=== PATIENT | female | born 1990 | race Caucasian/White ===

== ENCOUNTER 2021-05-29 06:25 | Day surgery (SDC) | payer SELFPAY ==
[~2021-05-29] VITALS: Ht 180.3 cm; Wt 120.9 kg
[~2021-05-29 06:25] MED LIST: ACET1TAB43 PO; CLINDAMYCIN 900MG PREMIX 50 ML IV PRN; FAMO20TA5 PO; HYDROmorphone 2 MG/ML VIAL IVP PRN; IV RINGERS,LACTATED 1000ML 1,000 ML IV SCH; MORPHINE SULFATE 2 MG/ML INJ. IVP PRN; NORE1TAB85 PO; PALI234D IM; PROCHLORPERAZINE 10 MG/2 ML VIAL. IVP PRN; fentaNYL PF VIAL 100 MCG/2 ML VIAL IVP PRN
[2021-05-29 06:52] VITALS: BP 157/96
[2021-05-29] MEDS ORDERED: BUPIVACAINE-EPI 0.25%-1:200000 MPF 30 ML VIAL. ONE (07:21)
[2021-05-29] MEDS ORDERED: fentaNYL PF VIAL 100 MCG/2 ML VIAL ONE ×2 (07:23→09:46)
[2021-05-29] MEDS ORDERED: ONDANSETRON PF 4 MG/2 ML VIAL. ONE (07:23)
[2021-05-29] MEDS ORDERED: DEXAMETHASONE SOD PHOS 4 MG/ML VIAL ONE (07:23)
[2021-05-29] MEDS ORDERED: MIDAZOLAM HCL/PF 2 MG/2 ML VIAL. ONE (07:25)
[2021-05-29 07:46] LABS: BASO # 0.1 x10^3/uL (0.0-0.2); BASO % 1 % (0-3); EOS # 0.2 x10^3/uL (0.0-0.7); EOS % 1 % (0-3); HEMATOCRIT 39.9 % (36.0-47.0); HEMOGLOBIN 13.4 g/dL (12.0-15.5); LYMPH # 3.6 x10^3/uL (1.0-4.8); LYMPH % 28 % (24-48); MEAN CORPUSCULAR HEMOGLOBIN 30 pg (25-35); MEAN CORPUSCULAR HGB CONC 34 g/dL (31-37); MEAN CORPUSCULAR VOLUME 90 fL (79-100); MONO % 7 % (0-9); NEUT # 7.8 x10^3/uL (1.8-7.7); NEUT % 62 % (31-73); PLATELET COUNT 278 x10^3/uL (140-400); RED BLOOD COUNT 4.45 x10^6/uL (3.50-5.40); RED CELL DISTRIBUTION WIDTH 14.9 % (11.5-14.5); WHITE BLOOD COUNT 12.6 x10^3/uL (4.0-11.0)
[2021-05-29] MEDS ORDERED: FAMOTIDINE 20 MG/2 ML VIAL ONE (08:26)
[2021-05-29] MEDS ORDERED: SUCCINYLCHOLINE 200 MG/10 ML VIAL. ONE (08:27)
[2021-05-29] MEDS ORDERED: NEOSTIGMINE METHYLSULFATE 5 MG/5 ML SYRINGE. ONE (08:56)
[2021-05-29] MEDS ORDERED: GLYCOPYRROLATE 1 MG/5 ML VIAL. ONE (08:56)
[2021-05-29] MEDS ORDERED: fentaNYL PF VIAL 250 MCG/5 ML VIAL ONE (09:10)
--- NOTE | 2021-05-29 09:26 | PDOC ---
BRIEF OPERATIVE NOTE Date: May 29, 2021 Pre-Op Diagnosis Desires permanent sterility Post-Op Diagnosis same Procedure Performed laparoscopic BTL Surgeon Dr. Luna Scrub Woman LUZ MARIA Goetz Anesthesiologist Dr. Moore Anesthesia Type: General Blood Loss <5cc IV Fluid see anesthesia note Urine Output straight cath prior to procedure Specimens Obtained none Findings normal uterus, bilateral tubes and ovaries; possible umbilical hernia without pouching under umbilicus so did LUQ entry just in case, nothing under it when inside abdomen though Complications none Operative Note [id number] ALICIA LUNA MD May 29, 2021 09:26
[2021-05-29] MEDS ORDERED: SIMETHICONE 80 MG TAB.CHEW PO PRN (09:30)
[2021-05-29] MEDS ORDERED: CALCIUM CARBONATE 500 MG TAB.CHEW PO PRN (09:30)
[2021-05-29] MEDS ORDERED: diphenhydrAMINE HCL 25 MG CAPSULE PO PRN (09:30)
[2021-05-29] MEDS ORDERED: HYDROcodone/APAP 5/325MG 1 TAB TABLET PO PRN (09:30)
[2021-05-29] MEDS ORDERED: 0.9 % SODIUM CHLORIDE 10 ML DISP.SYRIN. IV PRN (09:30)
[2021-05-29] MEDS ORDERED: MAG HYDROX/ALUMINUM HYD/SIMETH 30 ML ORAL.SUSP PO PRN (09:30)
[2021-05-29] MEDS ORDERED: NALOXONE 0.4 MG/ML VIAL. IV PRN (09:30)
[2021-05-29] MEDS ORDERED: diphenhydrAMINE 50 MG/ML VIAL IV PRN (09:30)
--- NOTE | 2021-05-29 09:40 | OP ---
DATE OF SURGERY: 05/29/2021 PREOPERATIVE DIAGNOSIS: Desires permanent sterility. POSTOPERATIVE DIAGNOSIS: Desires permanent sterility. PROCEDURE: Laparoscopic bilateral tubal ligation. SURGEON: Delia Borrego MD ERP CONSULTANT: LUZ MARIA Goetz ANESTHESIOLOGIST: Dr. Moore. ANESTHESIA: General. BLOOD LOSS: Less than 5 mL. URINE OUTPUT: With a straight catheterization prior to procedure. IV FLUIDS: Please see anesthesia records. SPECIMENS: None. FINDINGS: She had a normal uterus, bilateral tubes and ovaries. Upon examining her under relaxation, she had a little outpouching at the inferior aspect of the umbilicus that could have been a possible hernia, so it was decided not to put the initial incision there to do a left upper quadrant entry. However, when we got inside, I did not see anything under there, but we did avoid it. So, I just did a left upper quadrant for the camera and gas and then the suprapubic port like normal for the instrument, for the LigaSure, for the burning and cutting of the tubes. COMPLICATIONS: None. DESCRIPTION OF PROCEDURE: This patient was taken to the operating room where general anesthesia was placed. The patient was placed in dorsal lithotomy position in [facility]. The patient's abdomen and vagina were both prepped and draped in the normal sterile fashion and a straight catheter urine was done prior to my arrival. Upon my arrival, a timeout was performed. Once everyone agreed on the patient, the site, the procedure, the antibiotics, the procedure was initiated. A bivalve speculum was placed in the patient's vagina. Single-tooth tenaculum was used to grasp the anterior lip of the cervix. The Valtchev uterine manipulator was placed through the endocervical os, locked on the single-tooth tenaculum and the bivalve speculum was then removed. Top gloves were discarded and changed. Attention was then turned to the abdomen where we found that kind of pouching underneath the umbilical area. So, it was decided to avoid this area, not knowing what was on the other side and do a left upper quadrant entry. So, going just a few centimeters below the costovertebral angle and laterally, a small incision was made. The Kristine was used to dissect through the subcuticular layer to the fascia. The 5 mm Visiport was used to directly enter the abdominal cavity. Opening patient pressure was 4-5 mmHg and direct abdominal placement was confirmed via the laparoscope. Carbon dioxide gas was used to appropriately insufflate the abdominal cavity to maintain a pressure of 15 mmHg. Overhead lights were dimmed and she was placed in Trendelenburg position. The manipulator was able to easily elevate the uterus, tubes and ovaries. Both tubes and ovaries appeared normal. So, the left tube and ovary were flipped up, grabbing the tube with the LigaSure, cauterizing 2 or 3 areas in the mid ampullary area, going back to the middle, cauterizing and cutting and then going one deeper to make sure we were through and through to the mesosalpinx and this was done exactly the same on the right side. Before doing this, I did move the camera to the suprapubic area to look at the left upper quadrant. It was indeed clear and it was barely in fact, so we went ahead and pushed it through just a little bit, used 4-5 mL of air to insufflate that trocar cuff and then insufflated the suprapubic trocar cuff as well with the 4-5 mL of air. Then, the procedure was initiated. So, once the left tube was done, the right tube was done. Pictures were taken before and after of both. There were no bleeding, no complications. The air was taken out of both trocar cuffs. The suprapubic port was removed under direct visualization. There was no bleeding. It was completely hemostatic. Gas was released through that left upper quadrant port and it was removed as well. Both port sites were closed with 4-0 nylon at the skin and injected with local. The patient is currently being awakened from anesthesia. The bottom instruments were removed. There was no active bleeding. LIZETH CASTRO: Gino TID: [id number]
[2021-05-29] MEDS ORDERED: HYDR-2761 PO (09:42)
[2021-05-29] MEDS: fentaNYL PF VIAL 100 MCG/2 ML VIAL IVP PRN ×2 (09:49→09:57)
[2021-05-29 10:10] VITALS: BP 131/85
== END 2021-05-29 10:40 | disposition home or self-care (01) ==
LOC: SURG 06:25 → EDUNIT# 08:30 → SURG 10:40
PROVIDERS: ATTEND Obstetrics & Gynecology
DX: Z30.2 Encounter for sterilization (principal); N97.9 Female infertility, unspecified; Z79.899 Other long term (current) drug therapy; Z98.890 Other specified postprocedural states; Z88.0 Allergy status to penicillin
CPT/HCPCS: 36415; 58670; 81025; 85025; A4930; A6219; J0330; J1100; J1956; J2250; J2405; J2710; J3010; J3490

== ENCOUNTER 2021-07-31 06:19 | Day surgery (SDC) | payer MEDICAID ==
[~2021-07-31] VITALS: Ht 180.3 cm; Wt 118.0 kg
[~2021-07-31 06:19] MED LIST changes: -CLINDAMYCIN 900MG PREMIX 50 ML IV PRN; +HYDR-2761 PO
[2021-07-31 06:46] VITALS: BP 119/67
[2021-07-31] MEDS ORDERED: DEXAMETHASONE SOD PHOS 4 MG/ML VIAL ONE (06:52)
[2021-07-31] MEDS ORDERED: PROPOFOL 10 MG/ML (20ML) VIAL. IV ONE (06:52)
[2021-07-31] MEDS ORDERED: LIDOCAINE 2% PF 5 ML VIAL. ONE (06:52)
[2021-07-31] MEDS ORDERED: ONDANSETRON PF 4 MG/2 ML VIAL. ONE (06:52)
[2021-07-31] MEDS ORDERED: MIDAZOLAM HCL/PF 2 MG/2 ML VIAL. ONE (06:53)
[2021-07-31] MEDS ORDERED: fentaNYL PF VIAL 100 MCG/2 ML VIAL ONE ×3 (06:53→08:10)
[2021-07-31] MEDS ORDERED: VASOPRESSIN 20 UNIT/ML VIAL. ONE (07:05)
[2021-07-31] MEDS ORDERED: SUCCINYLCHOLINE 200 MG/10 ML VIAL. ONE (07:19)
[2021-07-31] MEDS ORDERED: ROCURONIUM 50 MG/5 ML VIAL. ONE (07:19)
[2021-07-31] MEDS ORDERED: KETOROLAC 30 MG/ML VIAL. ONE (07:45)
[2021-07-31] MEDS ORDERED: 0.9 % SODIUM CHLORIDE 10 ML DISP.SYRIN. IV PRN (08:00)
[2021-07-31] MEDS ORDERED: HYDROcodone/APAP 5/325MG 1 TAB TABLET PO PRN (08:00)
[2021-07-31] MEDS ORDERED: CALCIUM CARBONATE 500 MG TAB.CHEW PO PRN (08:00)
[2021-07-31] MEDS ORDERED: SIMETHICONE 80 MG TAB.CHEW PO PRN (08:00)
[2021-07-31] MEDS ORDERED: diphenhydrAMINE HCL 25 MG CAPSULE PO PRN (08:00)
[2021-07-31] MEDS ORDERED: NALOXONE 0.4 MG/ML VIAL. IV PRN (08:00)
[2021-07-31] MEDS ORDERED: diphenhydrAMINE 50 MG/ML VIAL IV PRN (08:00)
[2021-07-31] MEDS ORDERED: MAG HYDROX/ALUMINUM HYD/SIMETH 30 ML ORAL.SUSP PO PRN (08:00)
--- NOTE | 2021-07-31 08:09 | PDOC4 ---
BRIEF OPERATIVE NOTE Date: Jul 31, 2021 Pre-Op Diagnosis menorrhagia Post-Op Diagnosis same Procedure Performed diag hysteroscopy with novasure endometrial ablation Surgeon Delia Roman Anesthesiologist Dr. Anne Anesthesia Type: General Blood Loss <5cc IV Fluid see anesthesia Urine Output 50cc straight cath prior Specimens Obtained none Findings normal uterine cavity; both tubal ostia seen uterus sounded 8cm, 5cm functional length; 3.4 width, ablation 65 seconds Complications none Operative Note [id number] DELIA LUNA MD Jul 31, 2021 08:09
[2021-07-31] MEDS ORDERED: HYDROcodone/APAP 5/325MG 1 TAB TABLET PO ONE (08:30)
[2021-07-31 08:33] VITALS: BP 126/68
[2021-07-31] MEDS ORDERED: PROCHLORPERAZINE 10 MG/2 ML VIAL. ONE (08:43)
[2021-07-31] MEDS ORDERED: ePHEDrine PF IN SALINE 50 MG/10 ML SYRINGE. IV ONE (08:55)
[2021-07-31] MEDS ORDERED: SEVOFLURANE 16 TO 30 MINUTES. IH ONE (08:58)
--- NOTE | 2021-07-31 09:15 | OP ---
DATE OF SURGERY: 07/31/2021 PREOPERATIVE DIAGNOSIS: Menorrhagia. POSTOPERATIVE DIAGNOSIS: Menorrhagia. PROCEDURE: Diagnostic hysteroscopy with NovaSure endometrial ablation. SURGEON: Delia Borrego MD. FLATWORK FINISHER: OR personnel. ANESTHESIA: General. BLOOD LOSS: Less than 5. URINE OUTPUT: 50 mL straight cath prior to procedure. SPECIMENS: There is no specimen obtained. FINDINGS: She had a normal uterine cavity that sounded to 8 cm. Diagnostic hysteroscope confirmed no fibroids or polyps. Normal cavity. Bilateral tubal ostia were seen so the NovaSure device went in, functional length was set at 5, the width settled at 3.4. The ablation lasted 65 seconds. There were no complications. DESCRIPTION OF PROCEDURE: This patient was taken to the operating room where anesthesia was placed. The patient was placed in dorsal lithotomy position in Yovanny stirrups. The patient's vagina was prepped and draped in the normal sterile fashion and a straight cath urine was done prior to my arrival. Upon my arrival, a timeout was performed. Once everyone agreed on the patient, the site, the procedure, the procedure was initiated. A weighted speculum was placed in the patient's vagina. A single-tooth tenaculum was used to grasp the anterior lip of the cervix. She was dilated to an 8 and 9 with the Hegar dilators, sounded to 8 cm. Diagnostic hysteroscope was placed in with the above findings. The NovaSure was set at 5, placed in, cavity width settled at 3.4. The device was enabled, the cavity assessment check was performed. Once it passed the cavity assessment check, it went straight into the ablation process, which lasted 65 seconds. The device was removed. The tenaculum was removed. There was no bleeding. The weighted speculum was removed and the procedure was ended. She was then awakened from anesthesia and brought to recovery room in stable condition. MARYANN/VANNESA DR: Gino TID: [id number]
== END 2021-07-31 09:20 | disposition home or self-care (01) ==
LOC: SURG 06:19
PROVIDERS: ATTEND Obstetrics & Gynecology
DX: N92.0 Excessive and frequent menstruation with regular cycle (principal); K21.9 Gastro-esophageal reflux disease without esophagitis; Z79.899 Other long term (current) drug therapy; Z98.890 Other specified postprocedural states; Z88.0 Allergy status to penicillin
CPT/HCPCS: 58563; 81025; A4930; J0330; J0780; J1100; J1885; J2250; J2405; J2704; J3010; J3490